=== PATIENT | female | born 1955 | race Caucasian/White ===

== ENCOUNTER 2019-01-18 14:59 | Outpatient (REF) | payer MEDICAID, SELFPAY ==
--- NOTE | 2019-01-18 14:00 | PAPFT_PTH ---
PATIENT: Elise Glasgow LOC: [facility] U#:[id number] AGE/SX: 63/F ROOM: RE01/18/[address]: NAOMY Leiva : 1955 BED: DIS: 01/18/2019 SPEC #: [id number] RECD: 01/18/19 17:01 STATUS: LUANNE ROWAN #: [id number] BELEM: 01/18/19 14:[address]: Guera Dunlap DEPT: [facility] Cytology RECD BY: Ina Hodges ENTERED: 01/18/19 17:01 SP TYPE: PAPFT ALLI DR: Rekha Cotto MD, DC Tissues: 1 - CX/ENDOCX FOR PAP SMEARS Procedures: PAP THIN PREP/UVM Screening HPV DNA PROBE Comments: [id number]
== END 2019-01-18 15:19 ==
LOC: LBN 14:59
PROVIDERS: PCP Family Medicine; Visit Provider Nurse Practitioner Family
DX: Z12.4 Encounter for screening for malignant neoplasm of cervix (principal); Z11.51 Encounter for screening for human papillomavirus (HPV)
CPT/HCPCS: 88142; 87624

== ENCOUNTER 2021-10-08 02:49 | Outpatient (CLI) | payer MEDICARE, MEDICAID, SELFPAY ==
[2021-10-08 12:28] LABS: Absolute Basophil Count 0.04 10^3/uL (0.0-0.2); Absolute Eosinophil Count 0.05 10^3/uL (0.0-0.7); Absolute Lymphocyte Count 1.05 10^3/uL (1.2-3.4); Absolute Neutrophil Count 2.11 10^3/uL (1.2-6.7); Basophils % 1.1; Eosinophils % 1.3; HCT 44.2 % (36.0-46.0); HGB 14.5 g/dL (11.2-15.7); MCH 29.5 pg (27.0-33.0); MCHC 32.8 % (32.0-36.0); Monocytes % 13.3; Neutrophils % 56.3; Nucleated RBC 0 %; Platelet Count 279 10^3/uL (130-400); RBC 4.91 10^6/uL (3.93-5.22); RDW 12.1 % (11.7-14.6); RDW-SD 39.8 fL; WBC 3.75 10^3/uL (4.4-10.8)
[2021-10-08 13:07] LABS: Anion Gap 9.3 mmol/L (3-11); BUN 16 mg/dL (7-18); CO2 26.7 mmol/L (21.0-32.0); CREATININE 0.8 mg/dL (0.55-1.02); Calcium 9.1 mg/dL (8.5-10.1); Chloride 106 mmol/L (98-107); Glucose 96 mg/dL (74-106); Potassium 4.1 mmol/L (3.5-5.1); Sodium 142 mmol/L (136-145); TSH 3.26 uIU/mL (0.36-3.74); Vitamin B12 410 pg/mL (193-986)
[2021-10-08 17:38] LABS: CRP, High Sensitivity 0.97 mg/L (See Note)
[2021-10-08 17:55] LABS: T3,Free 3.4 pg/mL (2.8-5.3)
[2021-10-11 02:54] LABS: Vitamin D 25 Total 22.8 ng/mL (30-100)
[2021-10-11 08:50] LABS: DHEA Sulfate 56 ug/dL (34-79)
[2021-10-11 10:30] LABS: Homocysteine 15.3 umol/L (5.0-13.9)
[2021-10-11 13:33] LABS: Fibrinogen Antigen, P 417 mg/dL (196 - 441)
[2021-10-11 15:23] LABS: Tissue Transglutaminase Ab IgA <1.2 U/mL; Tissue Transglutaminase Ab IgG <1.2 U/mL
[2021-10-12 12:04] LABS: Methylmalonic Acid 0.25 nmol/mL (<=0.40)
[2021-10-12 20:10] LABS: Gliadin (Deamidated) Ab, IgA <10.0 U; Gliadin (Deamidated) Ab, IgG <10.0 U
[2021-10-15 09:55] LABS: T3 (Triiodothyronine) Reverse 16 ng/dL (10-24)
== END 2021-10-08 02:50 | disposition home or self-care (01) ==
LOC: LOS 02:49
PROVIDERS: PCP Family Medicine; Visit Provider Naturopath
DX: R53.83 Other fatigue; E55.9 Vitamin D deficiency, unspecified; Z13.220 Encounter for screening for lipoid disorders; Z13.0 Encounter for screening for diseases of the blood and blood-forming organs and certain disorders involving the immune mechanism; Z13.29 Encounter for screening for other suspected endocrine disorder; Z00.00 Encounter for general adult medical examination without abnormal findings
CPT/HCPCS: 36415; 80048; 80061; 80186; 82306; 82627; 83090; 83516; 85385; 86141; 82607; 82626; 82728; 84436; 84443; 84481; 84482; 84630; 85025

== ENCOUNTER 2021-11-26 00:21 | Outpatient (CLI) | payer MEDICARE, MEDICAID, SELFPAY ==
--- NOTE | 2021-11-26 | DI.DEXA_ITS ---
Exam(s) XR DEXA BONE DENSITY W/WO CHRISTIN EXAM: XR DEXA BONE DENSITY W/WO CHRISTIN CLINICAL HISTORY: LOSS OF HEIGHT, SCREENING FOR OSTEOPOROSIS IN POSTMENOPAUSAL WOMAN,Z78.0 TECHNIQUE: moneymeets C densitometer COMPARISON: No exams were available for comparison FINDINGS: Lateral view of the thoracic and lumbar spine shows no evidence of compression fractures. Bone mineral density measurements of the lumbar spine correspond to a total T-score of -3.9, in the o steoporotic range peer Bone mineral density measurements of the left hip correspond to a total T-score of -2.6 . The femora l neck T-score is -3.3, in the osteoporotic range.. The left forearm bone mineral density measurements correspond to a T-score of the distal 3rd of -3.7, in the osteoporotic range. . IMPRESSION: Osteoporosis of the lumbar spine, left hip and left forearm.
== END 2021-11-26 00:41 ==
PROVIDERS: PCP Family Medicine; Visit Provider Naturopath
DX: Z78.0 Asymptomatic menopausal state (principal); M81.0 Age-related osteoporosis without current pathological fracture
CPT/HCPCS: 77080

== ENCOUNTER 2021-11-29 10:27 | Outpatient (REF) | payer MEDICARE, MEDICAID, SELFPAY ==
--- NOTE | 2021-11-29 10:00 | PAPFT_PTH ---
PATIENT: Elsie Glasgow LOC: [facility] U#:[id number] AGE/SX: 66/F ROOM: RE11/29/[address]: NAOMY Leiva : 1955 BED: DIS: 11/29/2021 SPEC #: [id number] RECD: 11/29/21 12:55 STATUS: LUANNE REQ #: [id number] BELEM: 11/29/21 10:[address]: Guera Dunlap DEPT: [facility] Cytology RECD BY: Ina Hodges ENTERED: 11/29/21 12:55 SP TYPE: PAPFT OTHR DR: Rekha Cotto MD, DC Tissues: 1 - CX/ENDOCX FOR PAP SMEARS Procedures: PAP THIN PREP/UVM Screening HPV DNA PROBE Comments: [id number]
== END 2021-11-29 10:28 | disposition home or self-care (01) ==
LOC: LBN 10:27
PROVIDERS: PCP Family Medicine; Visit Provider Nurse Practitioner Family
DX: Z12.4 Encounter for screening for malignant neoplasm of cervix (principal); Z11.51 Encounter for screening for human papillomavirus (HPV); Z01.419 Encounter for gynecological examination (general) (routine) without abnormal findings
CPT/HCPCS: 88142; 87624

== ENCOUNTER 2022-06-24 01:09 | Outpatient (CLI) | payer MEDICARE, MEDICAID, SELFPAY ==
--- OUTSIDE RECORDS SUMMARY | 2022-06-24 01:31 | XMS_ITS | Encounter Summary ---
:1955 Author Organization [facility] Address [address] [place] [address] Care Team Providers Name Role Phone Unavailable Primary Care Provider Unavailable Encounter Details Date Type Department Care Team Description 03/05/2012 Results Only [facility] Marilyn Ramsey, STANLEY Laboratory Services - [address] [address] Social History Tobacco Use Types Packs/Day Years Used Date Never Assessed Sex Assigned at Date Recorded Not on file documented as of this encounter Plan of Treatment Upcoming Encounters Date Type Specialty Care Team Description 07/11/2022 Telemedicine Endocrinology Iram Womack, DO 62 [facility] [address] [place] [phone] (Wo rk) documented as of this encounter Procedures Procedure Name Priority Date/Time Associated Diagnosis Comme nts PAP TEST- RESULT Routine 03/05/2012 0:00 EDT Resu lts for this ONLY procedure are i n the results section. documented in this encounter Results PAP TEST- RESULT ONLY (03/05/2012 0:00 EDT) Pathology Report: CYTOPATHOLOGY REPORT [facility] Reports generated via electronic interface contain stephanie ginal data; however they are lacking the format of the original re port. Caution should be taken when reading/interpreting unfo rmatted reports. Name: ? ELISE MONTAÑO ? Accession #: ? [id number] ? : ? 1955 (Age: 57) ??F ?Collect Da te: ? 03/05/2012 ? Location: ? [facility] ? Receive Date: ? 012 ? Provider: MARILYN RAMSEY MANAGER PRODUCTION Copy to: NELI KEBEDE MD ? Final Report SPECIMEN ADEQUACY ? Satisfactory for Evaluation - transformation zone component present GENERAL CATEGORIZATION ? Negative for Intraepithelial Lesion or Malignan cy ?? Last Menstural Period: 2005 Specimen/Source: ??Pap Test, Cervix/Endocervix, ThinPr ep Imaging System with manual evaluation Document reviewed and electronically signed by: ? Safia Khan, ENEIDA(ASCP) ? Report ??Date: 03/09/2012 15:54 HPV with Pap Test ? Date Ordered: ? 03/09/2012 ? Status: ?? Signed Out ?Date Complete: ? 03/13/2012 ? By: ??S ystem Interface ? Date Reported: ? 03/13/2012 ? Interpretation RESULT: Negative for HPV. No E6 or E7 mRNA is detected from HPV types 16,18,31,3 3,35, 39,45,51,52,56,58,59,66, and 68 by beauty culturist apprentice media william amplification. Comments Document reviewed and electronically signed by: ? System Interface ? Report date: 03/13/2012 By the signature above, the attending physician certif ies that he/she has personally conducted a gross and/or microscopic examin ation of the described specimens and rendered or confirmed the above diagnosi s. End of Report Specimen Performing Organization Address City/State/ZIP Code Phon e Number [facility] [address] [place] [address] SERVICES [facility] [address] [place] [address] documented in this encounter Visit Diagnoses Not on filedocumented in this encounter
--- OUTSIDE RECORDS SUMMARY | 2022-06-24 01:31 | XMS_ITS | Encounter Summary ---
:1955 Author Organization [facility] Address [address] [place] [address] Care Team Providers Name Role Phone Unavailable Primary Care Provider Unavailable Encounter Details Date Type Department Care Team Description 11/30/2021 Lab Requisition [facility] Guera Dunlap E ncounter for other Pathology & DIGITAL MEDIA PLANNER general examination Laboratory Medicine [address] [place], [place] 111 [facility] [phone] [place] [address] Social History Tobacco Use Types Packs/Day Years Used Date Never Assessed Sex Assigned at Date Recorded Not on file documented as of this encounter Plan of Treatment Upcoming Encounters Date Type Specialty Care Team Description 07/11/2022 Telemedicine Endocrinology Iram Womack, DO 62 [facility] [address] [place] [phone] (Wo rk) documented as of this encounter Procedures Procedure Name Priority Date/Time Associated Comments Diagnosis PAP TEST Today 11/29/2021 10:00 Encounter for other Resu lts for this EST general examination procedur e are in the results section. HUMAN PAPILLOMAVIRUS Today 11/29/2021 10:00 Encounter for ot her Results for this (HPV) DETECTION-HIGH EST general examination procedure are in RISK TYPES the results section. documented in this encounter Results HUMAN PAPILLOMAVIRUS (HPV) DETECTION-HIGH RISK TYPES (11/29/2021 10:00 EST) Human Papillomavirus NegativeComment: No Negative [facility] (HPV) Detection-High E6 or E7 mRNA is CENTER LABORATOR Y Types detected from HPV SERVICES types 16,18,31,33,35,39,45 ,51,52,56,58,59,66, and 68 by lawn caretaker mediated amplification. Specimen Pap Test - Cervix and/or Endocervix Performing Organization Address City/State/ZIP Code Phon e Number [facility] [address] [place] [address] SERVICES PAP TEST (11/29/2021 10:00 EST) Specimens A. Cervix and/or [facility] Endocervix , ThinPrep CENTER Imaging System with LABORATORY Manual Evaluation SERVICES Specimen Adequacy Satisfactory for Evaluation - assessment of transformation zone component not applicable ( e.g. atrophy, vaginal sample, hysterectomy) [facility] Scant squamous epithelial component [facility]ENT[facility] LABORATORY SERVICES General Negative for [facility] intraepithelial MALCOLM lesion or malignancy LABORATORY SERVICES Attestation . [facility] signed by TANIA Ray CT(ASCP) o n SERVICES 12/09/2021 at 11 18 Clinical History See below [facility] SERVICES HPV The result for the Human Pap illomavirus (HPV) Detection-High Risk Types is Negative. No E6 or E7 mRNA is detected from HPV types 16,18,31,33,35,39,45,51,52,56,58,59,66, and 68 by lawn caretaker mediated [facility] amplification.Testing was pe rformed on specimen [id number] and was resulted on 12/09/2021 1100 EST by CALI, LAB INSTRUMENT RESULTS IN [facility] SERVICES Performing Lab [facility] SERVICES Scanned Images [facility] SERVICES Specimen Pap Test - Cervix and/or Endocervix Performing Organization Address City/[facility]/ZIP Code Phon e Number [facility] [address] [place] [address] SERVICES documented in this encounter Visit Diagnoses Diagnosis Encounter for other general examination documented in this encounter
--- OUTSIDE RECORDS SUMMARY | 2022-06-24 01:31 | XMS_ITS | Encounter Summary ---
:1955 Author Organization [facility] Address [address] [place] [address] Care Team Providers Name Role Phone Unavailable Primary Care Provider Unavailable Encounter Details Date Type Department Care Team Description 02/11/2002 Results Only [facility] - Marilyn Almaraz NP conversion [address] [place] [address] Social History Tobacco Use Types Packs/Day Years Used Date Never Assessed Sex Assigned at Date Recorded Not on file documented as of this encounter Plan of Treatment Upcoming Encounters Date Type Specialty Care Team Description 07/11/2022 Telemedicine Endocrinology Iram Womack, DO 62 [facility] [address] [place] [phone] (Wo rk) documented as of this encounter Procedures Procedure Name Priority Date/Time Associated Diagnosis Comme [facility] CYTOPATHOLOGY Routine 02/11/2002 0:00 EST Results for this procedure are i n the results section . documented in this encounter Results CYTOPATHOLOGY (02/11/2002 0:00 EST) Pathology Report: CYTOPATHOLOGY REPORT [facility] Reports generated via electronic interface contain stephanie ginal data; however they are lacking the format of the original re port. Caution should be taken when reading/interpreting unfo rmatted reports. Name: ? ELISE MONTAÑO ? Accession #: ? [id number] : ? 1955 (Age: 46) ??F ?Collect Date: ? 01/19 Location: ? [facility] ? Receive Date : ? 02/12/2002 Provider: ?MARILYN HOPSON DIRECTOR PLANS Copy to: ? Specimen/Source: ?Conventional Pap Test, Cer vix/Endocervix Last Menstrual Period: ? 01/14/02 ? SPECIMEN ADEQUACY ? Satisfactory for Evaluation - transformation zone component present GENERAL CATEGORIZATION ? Negative for Intraepithelial Lesion or Malignan cy ? Document reviewed and electronically signed by: ? ENEIDA Lozano(ASCP) ? Report Date: ??02/14/2002 16:17 End of Report Specimen Performing Organization Address City/State/ZIP Code Phon e Number [facility] [address] [place] [address] SERVICES [facility] [address] [place] [address] documented in this encounter Visit Diagnoses Not on filedocumented in this encounter
--- OUTSIDE RECORDS SUMMARY | 2022-06-24 01:31 | XMS_ITS | Clinical Summary ---
:1955 Author Organization [facility] Address [address] [place] [address] Care Team Providers Name Role Phone Unavailable Primary Care Provider Unavailable Social History Tobacco Use Types Packs/Day Years Used Date Never Assessed Sex Assigned at Date Recorded Not on file Plan of Treatment Upcoming Encounters Date Type Specialty Care Team Description 07/11/2022 Telemedicine Endocrinology Iram Womack, DO [address] [place] [address] [place] [phone] (Wo rk) Health Maintenance Due Date Last Done Comments Hepatitis C Screen 1955 COVID-19 Vaccine (1) 1959 Fall Risk Screening 2019
--- OUTSIDE RECORDS SUMMARY | 2022-06-24 01:31 | XMS_ITS | Encounter Summary ---
:1955 Author Organization [facility] Address [address] [place] [address] Care Team Providers Name Role Phone Unavailable Primary Care Provider Unavailable Encounter Details Date Type Department Care Team Description 11/14/2007 Results Only [facility] - Marilyn Almaraz NP conversion [address] [place] [address] Social History Tobacco Use Types Packs/Day Years Used Date Never Assessed Sex Assigned at Date Recorded Not on file documented as of this encounter Plan of Treatment Upcoming Encounters Date Type Specialty Care Team Description 07/11/2022 Telemedicine Endocrinology Iram Womack, DO 62 [facility] [address] [place] [phone] (Wo rk) documented as of this encounter Procedures Procedure Name Priority Date/Time Associated Diagnosis Comme nts CYTOPATHOLOGY Routine 11/14/2007 0:00 EST Results for this procedure are i n the results section . documented in this encounter Results CYTOPATHOLOGY (11/14/2007 0:00 EST) Pathology Report: CYTOPATHOLOGY REPORT [facility] Reports generated via electronic interface contain stephanie ginal data; however they are lacking the format of the original re port. Caution should be taken when reading/interpreting unfo rmatted reports. Name: ? ELISE MONTAÑO ? Accession #: ? [id number] : ? 1955 (Age: 52) ??F ?Collect Date: ? 10/21 Location: ? [facility] ? Receive Date : ? 11/15/2007 Provider: ?MARILYN HOPSON LAW WRITER Copy to: ? Specimen/Source: ? ThinPrep Pap Test, Cervix/Endocervix, processed on coresystems ThinPrep Imaging System, with manual evaluation Last Menstrual Period: ? 3 years Other: ? HPVA - HPV testing requested if ASC-US on the current ThinPrep Pap test. ? SPECIMEN ADEQUACY ? Satisfactory for Evaluation - transformation zone component present GENERAL CATEGORIZATION ? Negative for Intraepithelial Lesion or Malignan cy ? Document reviewed and electronically signed by: ? ENEIDA Talbert(ASCP) ? Report Date: ??11/21/2007 09:08 End of Report Specimen Performing Organization Address City/State/ZIP Code Phon e Number [facility] [address] [place] [phone] SERVICES [facility] [address] [place] [address] documented in this encounter Visit Diagnoses Not on filedocumented in this encounter
--- OUTSIDE RECORDS SUMMARY | 2022-06-24 01:31 | XMS_ITS | Encounter Summary ---
:1955 Author Organization [facility] Address [address] [place] [address] Care Team Providers Name Role Phone Unavailable Primary Care Provider Unavailable Encounter Details Date Type Department Care Team Description 09/23/2005 Results Only [facility] - Guera Correa od, SPACE BUYER conversion [address] [facility] [address] [place] [phone] (Rory ibrahim) Social History Tobacco Use Types Packs/Day Years Used Date Never Assessed Sex Assigned at Date Recorded Not on file documented as of this encounter Plan of Treatment Upcoming Encounters Date Type Specialty Care Team Description 07/11/2022 Telemedicine Endocrinology Iram Womack, DO 62 [facility] [address] [place] [phone] (Wo rk) documented as of this encounter Procedures Procedure Name Priority Date/Time Associated Diagnosis Comme nts CYTOPATHOLOGY Routine 09/23/2005 0:00 EST Results for this procedure are i n the results section . documented in this encounter Results CYTOPATHOLOGY (09/23/2005 0:00 EST) Pathology Report: CYTOPATHOLOGY REPORT [facility] Reports generated via electronic interface contain stephanie ginal data; however they are lacking the format of the original re port. Caution should be taken when reading/interpreting unfo rmatted reports. Name: ? ELISE MONTAÑO ? Accession #: ? [id number] : ? 1955 (Age: 50) ??F ?Collect Date: ? 02/2005 Location: ? [facility] ? Receive Date : ? 09/26/2005 Provider: ?GUERA LIMA SPACE BUYER Copy to: ? Specimen/Source: ?Conventional Pap Test, Cer vix/Endocervix Last Menstrual Period: ? 1 + years ago ? SPECIMEN ADEQUACY ? Satisfactory for Evaluation - assessment of transformation zone component not appl icable ( e.g. atrophy, vaginal sample, hysterectomy) GENERAL CATEGORIZATION ? Negative for Intraepithelial Lesion or Malignan cy ? Document reviewed and electronically signed by: ? Winnie Oconnor, SCT(ASCP) ? Report Date: ??09/30/2005 09:36 End of Report Specimen Performing Organization Address City/State/ZIP Code Phon e Number [facility] [address] [place] [address] SERVICES [facility] [address] [place] [address] documented in this encounter Visit Diagnoses Not on filedocumented in this encounter
--- OUTSIDE RECORDS SUMMARY | 2022-06-24 01:31 | XMS_ITS | Encounter Summary ---
:1955 Author Organization [facility] Address [address] [place] [address] Care Team Providers Name Role Phone Unavailable Primary Care Provider Unavailable Encounter Details Date Type Department Care Team Description 11/17/2008 Before PRISM Converted [facility] - Kaykay Ramsey, Visit (Maple) Maple conversion INTELLIGENCE OPERATIONS SPECIALIST [address] [place] [address] Social History Tobacco Use Types Packs/Day Years Used Date Never Assessed Sex Assigned at Date Recorded Not on file documented as of this encounter Plan of Treatment Upcoming Encounters Date Type Specialty Care Team Description 07/11/2022 Telemedicine Endocrinology Iram Womack, DO 62 [facility] [address] [place] [phone] (Wo rk) documented as of this encounter Procedures Procedure Name Priority Date/Time Associated Diagnosis Comme [facility] CYTOPATHOLOGY Routine 11/17/2008 0:00 EST Results for this procedure are i n the results section . documented in this encounter Results CYTOPATHOLOGY (11/17/2008 0:00 EST) Pathology Report: CYTOPATHOLOGY REPORT ? BLACK ALL EN ? LAB Reports generated via [employer] interface contain original data; ? however they are lacking the format of the original report. ? Caution should be taken when reading/interpreting unformatted reports. ? Name: ? ELISE MONTAÑO ? Accession #: ? [id number] ? : ? 1955 (Age: 53) ??F ?Collect Date: ? 11/17/2008 ? Location: ? [facility] ? Receive Date: ? 11/18/2008 ? Provider: ?SAVANAH M RO WLETT INTELLIGENCE OPERATIONS SPECIALIST ? Copy to: ? Specimen/Source: ? Pap Test, Cervix/Endocervix, ThinPrep Imaging System ? with manual evaluation ? Last Menstrual Period: ? Age 49 ? Other: ? HPVA - HPV testing requested if ASC-US on the current ThinPrep Pap test. ? SPECIMEN ADEQUACY ? Satisfactory for Eval uation ? - assessment of transformati on zone component not applicable ( e.g. atrophy, ? vaginal sample, hysterectomy ) ? GENERAL CATEGORIZATION ? Negative for Intraepi thelial Lesion or Malignancy ? Document reviewed and electr onically signed by: ? Barbara Verville,CT(ASCP) ? Report Date: ??01/02/ 2009 15:02 ? End of Report ? Specimen Performing Organization Address City/State/ZIP Code Phon e Number [facility] [address] [place] [address] SERVICES [facility] [address] [place] [address] documented in this encounter Visit Diagnoses Not on filedocumented in this encounter
--- OUTSIDE RECORDS SUMMARY | 2022-06-24 01:31 | XMS_ITS | Encounter Summary ---
:1955 Author Organization [facility] Address [address] [place] [address] Care Team Providers Name Role Phone Unavailable Primary Care Provider Unavailable Encounter Details Date Type Department Care Team Description 01/10/2011 Results Only [facility] Marilyn Ramsey, STANLEY Laboratory Services - [address] [address] Social History Tobacco Use Types Packs/Day Years Used Date Never Assessed Sex Assigned at Date Recorded Not on file documented as of this encounter Plan of Treatment Upcoming Encounters Date Type Specialty Care Team Description 07/11/2022 Telemedicine Endocrinology Iram Womack, DO 62 [facility] [address] [place] [phone] (Wo rk) documented as of this encounter Procedures Procedure Name Priority Date/Time Associated Diagnosis Comme nts CYTOPATHOLOGY Routine 01/10/2011 0:00 EST Results for this procedure are i n the results section . documented in this encounter Results CYTOPATHOLOGY (01/10/2011 0:00 EST) Pathology Report: CYTOPATHOLOGY REPORT ? BLACK ALL EN ? LAB Reports generated via [employer] interface contain original data; ? however they are lacking the format of the original report. ? Caution should be taken when reading/interpreting unformatted reports. ? Name: ? ELISE MONTAÑO ? Accession #: ? [id number] ? : ? 1955 (Age: 55) ??F ?Collect Date: ? 01/10/2011 ? Location: ? [facility] ? R eceive Date: ? 01/11/2011 ? Provider: MARILYN M MARK ANTHONY WEB UI DEVELOPER ? Copy to: ? Final Report ? SPECIMEN ADEQUACY ? Satisfactory for Eval uation ? - transformation zone compon ent present ? GENERAL CATEGORIZATION ? Negative for Intraepi thelial Lesion or Malignancy ? Last Menstural Period: 2004 ? Specimen/Source: ??Pap Test, Cervix/Endocervix, ThinPrep Imaging System with ? manual evaluation ? Document reviewed and electr onically signed by: ? Safia Khan, CT(ASCP) ? Report ??Date: 02/23/ 2011 15:58 ? HPV with Pap Test ? Date Ordered: ? 0 01/12/2011 ? Status: ?? Signed Out ?Date Complete: ? 01/17/2011 ? By: ??System Interface ? Date Reported: ? 01/17/2011 ? Interpretation ? RESULT: Negative for HPV typ es 16, 18, 31, 33, 35, 39, 45, 51, 52, ? 56, 58, 59, and 68. ? Comments ? Document reviewed and electr onically signed by: ? System Interface ? Report date: 01/17/09 10 ? By the signature above, the attending physician certifies that he/she has ? personally conducted a gross and/or microscopic examination of the described ? specimens and rendered or co nfirmed the above diagnosis. ? End of Report ? Specimen Performing Organization Address City/State/ZIP Code Phon e Number [facility] [address] [place] [address] SERVICES [facility] [address] [place] [address] documented in this encounter Visit Diagnoses Not on filedocumented in this encounter
--- OUTSIDE RECORDS SUMMARY | 2022-06-24 01:31 | XMS_ITS | Encounter Summary ---
:1955 Author Organization [facility] Address [address] [place] [address] Care Team Providers Name Role Phone Unavailable Primary Care Provider Unavailable Encounter Details Date Type Department Care Team Description 03/11/2004 Results Only [facility] - Marilyn Almaraz NP conversion [address] [place] [address] Social History Tobacco Use Types Packs/Day Years Used Date Never Assessed Sex Assigned at Date Recorded Not on file documented as of this encounter Plan of Treatment Upcoming Encounters Date Type Specialty Care Team Description 07/11/2022 Telemedicine Endocrinology Iram Womack, DO 62 [facility] [address] [place] [phone] (Wo rk) documented as of this encounter Procedures Procedure Name Priority Date/Time Associated Diagnosis Comme [facility] CYTOPATHOLOGY Routine 03/11/2004 0:00 EDT Results for this procedure are i n the results section . documented in this encounter Results CYTOPATHOLOGY (03/11/2004 0:00 EDT) Pathology Report: CYTOPATHOLOGY REPORT [facility] Reports generated via electronic interface contain stephanie ginal data; however they are lacking the format of the original re port. Caution should be taken when reading/interpreting unfo rmatted reports. Name: ? ELISE MONTAÑO ? Accession #: ? [id number] : ? 1955 (Age: 49) ??F ?Collect Date: ? 02/19 Location: ? [facility] ? Receive Date : ? 03/15/2004 Provider: ?MARILYN HOPSON SENIOR SOFTWARE PROJECT MANAGER Copy to: ? Specimen/Source: ?Conventional Pap Test, Cer vix/Endocervix Last Menstrual Period: ? 03/01/04 & ? SPECIMEN ADEQUACY ? Satisfactory for Evaluation - transformation zone component present GENERAL CATEGORIZATION ? Negative for Intraepithelial Lesion or Malignan cy INTERPRETATION ? Reactive cellular charanjit nges associated with inflammation present (includes repair). ? Document reviewed and electronically signed by: ? Khloe Banuelos MD ? Report Date: ??03/17/2004 13:37 End of Report Specimen Performing Organization Address City/State/ZIP Code Phon e Number [facility] [address] [place] [address] SERVICES [facility] [address] [place] [address] documented in this encounter Visit Diagnoses Not on filedocumented in this encounter
--- OUTSIDE RECORDS SUMMARY | 2022-06-24 01:31 | XMS_ITS | Encounter Summary ---
:1955 Author Organization [facility] Address [address] [place] [address] Care Team Providers Name Role Phone Unavailable Primary Care Provider Unavailable Encounter Details Date Type Department Care Team Description 10/25/2006 Results Only [facility] - Marilyn Almaraz NP conversion [address] [place] [address] Social History Tobacco Use Types Packs/Day Years Used Date Never Assessed Sex Assigned at Date Recorded Not on file documented as of this encounter Plan of Treatment Upcoming Encounters Date Type Specialty Care Team Description 07/11/2022 Telemedicine Endocrinology Iram Womack, DO 61 Located Within [facility] [address] [place] [phone] (Wo rk) documented as of this encounter Procedures Procedure Name Priority Date/Time Associated Diagnosis Comme nts CYTOPATHOLOGY Routine 10/25/2006 0:00 EST Results for this procedure are i n the results section . documented in this encounter Results CYTOPATHOLOGY (10/25/2006 0:00 EST) Pathology Report: CYTOPATHOLOGY REPORT [facility] Reports generated via electronic interface contain stephanie ginal data; however they are lacking the format of the original re port. Caution should be taken when reading/interpreting unfo rmatted reports. Name: ? ELISE MONTAÑO ? Accession #: ? [id number] : ? 1955 (Age: 51) ??F ?Collect Date: ? 04/2006 Location: ? [facility] ? Receive Date : ? 10/27/2006 Provider: ?MARILYN HOPSON [employer] Copy to: ? Specimen/Source: ?Conventional Pap Test, Cer vix/Endocervix Last Menstrual Period: ? 2 + yrs ago ? SPECIMEN ADEQUACY ? Satisfactory for Evaluation - transformation zone component present GENERAL CATEGORIZATION ? Negative for Intraepithelial Lesion or Malignan cy ? Document reviewed and electronically signed by: ? ENEIDA Lozano(ASCP) ? Report Date: ??11/03/2006 15:47 End of Report Specimen Performing Organization Address City/State/ZIP Code Phon e Number [facility] [address] [place] [address] SERVICES [facility] [address] [place] [address] documented in this encounter Visit Diagnoses Not on filedocumented in this encounter
--- OUTSIDE RECORDS SUMMARY | 2022-06-24 01:31 | XMS_ITS | Encounter Summary ---
:1955 Author Organization [facility] Address [address] [place] [address] Care Team Providers Name Role Phone Unavailable Primary Care Provider Unavailable Encounter Details Date Type Department Care Team Description 10/08/2021 Lab Requisition [facility] Outr Resulting Lab, Pathology & Laboratory Provider [facility] [address] [place] [address] Social History Tobacco Use Types Packs/Day Years Used Date Never Assessed Sex Assigned at Date Recorded Not on file documented as of this encounter Plan of Treatment Upcoming Encounters Date Type Specialty Care Team Description 07/11/2022 Telemedicine Endocrinology Iram Womack, DO 61 [facility] [address] [place] [phone] (Wo rk) documented as of this encounter Procedures Procedure Name Priority Date/Time Associated Comments Diagnosis DHEA SULFATE Routine 10/08/2021 8:05 Results for this EST procedure are i n the results section. HIGH SENSITIVITY Routine 10/08/2021 8:05 Results for this C-REACTIVE PROTEIN EST procedure are in (CARDIOVASCULAR the results DISEASE) section. T3 FREE Routine 10/08/2021 8:05 Results for this EST procedure are i n the results section. HOMOCYSTEINE Routine 10/08/2021 8:05 Results for this EST procedure are i n the results section. documented in this encounter Results T3 FREE (10/08/2021 8:05 EST) Pathologist Sig nature T3, Free 3.4 2.8 - 5.3 pg/mL [facility] Specimen Blood - Venous blood (substance) Performing Organization Address City/State/ZIP Code Phon e Number [facility] [address] [place] [address] SERVICES (ABNORMAL) HOMOCYSTEINE (10/08/2021 8:05 EST) Homocysteine 15.3 (H)Comment: 5.0 - 13.9 [facility] Results may be umol/L LABORATORY SERVICES falsely elevated if sample is not collected on ice or is not removed from cells within 1 hour of collection. Specimen Blood - Venous blood (substance) Narrative [facility] - 10/11/2021 10:26 EST Reference range may not apply to non-fas ting samples. ??It is not recommended that EDTA plasma and serum from the same pratima ent be used interchangeably. ??Serum concentrations have been observed to be up to 10% higher than EDTA plasma. Reference range may not apply to serum results. Performing Organization Address City/[facility]/ZIP Code Phon e Number [facility] [address] [place] [address] SERVICES DHEA SULFATE (10/08/2021 8:05 EST) Pathologist Sig nature DHEA Sulfate 56 34 - 79 ug/dL [facility] RY SERVICES Specimen Blood - Venous blood (substance) Performing Organization Address [facility] Code Phon e Number [facility] [address] [place] [address] SERVICES HIGH SENSITIVITY C-REACTIVE PROTEIN (CARDIOVASCULAR DISEASE) (10/08/2021 8:05 EST) High Sensitivity 0.97 See Note [facility] CRP Comment: mg/L [facility] LAB[facility]ORY Reference Range: SERVICES ??Source: [employer] Clinical Practice Recommendations, 2003 ??Low Risk: ? <1.0 mg/L ??Average Risk: ?? 1.0 - 3.0 mg/L ??High Risk: ?>3.0 mg/L ??Indeterminate*: >10.0 mg/L ??*May be an indication of another source of inflamma tion or infection Specimen Blood - Venous blood (substance) Performing Organization Address City/[facility]/ZIP Code Phon e Number [facility] [address] [place] [address] SERVICES documented in this encounter Visit Diagnoses Not on filedocumented in this encounter
[2022-06-24 12:20] LABS: Abs Immature Grans 0.01 10^3/uL (0.0-0.06); Absolute Basophil Count 0.03 10^3/uL (0.0-0.2); Absolute Eosinophil Count 0.04 10^3/uL (0.0-0.7); Absolute Lymphocyte Count 1.51 10^3/uL (1.2-3.4); Absolute Monocyte Count 0.52 10^3/uL (0.1-0.8); Absolute Neutrophil Count 2.62 10^3/uL (1.2-6.7); Basophils % 0.6; Eosinophils % 0.8; HCT 44.7 % (36.0-46.0); HGB 14.8 g/dL (11.2-15.7); Immature Grans % 0.2; Lymphocytes % 31.9; MCH 29.9 pg (27.0-33.0); MCHC 33.1 % (32.0-36.0); MCV 90 fL (80-95); MPV 10.6 fL (8.0-11.0); Neutrophils % 55.5; Platelet Count 276 10^3/uL (130-400); RBC 4.95 10^6/uL (3.93-5.22); RDW 11.9 % (11.7-14.6); RDW-SD 39.2 fL; WBC 4.73 10^3/uL (4.4-10.8)
[2022-06-24 12:53] LABS: Anion Gap 8.1 mmol/L (3-11); BUN 18 mg/dL (7-18); CO2 27.9 mmol/L (21.0-32.0); CREATININE 0.8 mg/dL (0.55-1.02); Calculated LDL 188 mg/dL (<100); Chloride 104 mmol/L (98-107); Cholesterol 280 mg/dL (<200); Glucose 97 mg/dL (74-106); HDL Cholesterol 62 mg/dL (40-60); Potassium 4.3 mmol/L (3.5-5.1); Sodium 140 mmol/L (136-145); TSH (W/Ref FT4) 3.35 uIU/mL (0.36-3.74); Triglyceride 151 mg/dL (<150)
== END 2022-06-24 01:10 | disposition home or self-care (01) ==
LOC: LOS 01:10
PROVIDERS: PCP Family Medicine; Visit Provider Family Medicine
DX: E03.9 Hypothyroidism, unspecified (principal); R53.83 Other fatigue; Z13.6 Encounter for screening for cardiovascular disorders
CPT/HCPCS: 36415; 80048; 80061; 84443; 85025

== ENCOUNTER 2022-08-19 01:22 | Outpatient (CLI) | payer MEDICARE, MEDICAID, SELFPAY ==
[2022-08-19 13:39] LABS: ALT 22 U/L (14-59); AST 19 U/L (15-37); Albumin 4.1 g/dL (3.4-5.0); Alkaline Phosphatase 118 U/L (46-116); Anion Gap 10.3 mmol/L (3-11); BUN 22 mg/dL (7-18); Bilirubin, Total 0.4 mg/dL (0.2-1.0); CO2 26.7 mmol/L (21.0-32.0); CREATININE 1.1 mg/dL (0.55-1.02); Calcium 9.4 mg/dL (8.5-10.1); Chloride 102 mmol/L (98-107); Estimated GFR 54.73 (mL/min/1.73m2); Glucose 94 mg/dL (74-106); PHOSPHORUS 3.2 mg/dL (2.6-4.7); Potassium 3.9 mmol/L (3.5-5.1); Sodium 139 mmol/L (136-145); TSH 3.12 uIU/mL (0.36-3.74); Total Protein 7.8 g/dL (6.4-8.2)
[2022-08-22 06:46] LABS: Vitamin D 25 Total 42.6 ng/mL (30-100)
[2022-08-22 10:12] LABS: Parathyroid Hormone,Intact 62 pg/mL (19-88)
== END 2022-08-19 01:23 | disposition home or self-care (01) ==
LOC: LOS 01:22
PROVIDERS: PCP Family Medicine; Visit Provider Internal Medicine Endocrinology, Diabetes & Metabolism
DX: M81.8 Other osteoporosis without current pathological fracture (principal)
CPT/HCPCS: 36415; 80053; 82306; 83970; 84100; 84443

== ENCOUNTER 2024-08-23 01:04 | Outpatient (CLI) | payer MEDICARE, MEDICAID, SELFPAY ==
--- NOTE | 2024-08-23 07:30 | DI.US_ITS ---
APPROVED REPORT EXAM: Comprehensive 2D, Doppler, and color-flow Echocardiogram Patient Location: Out-Patient [employer] Belt Engineer: Matt Davey RDCS (AE) Indications: Evaluate cardiac murmur Conclusion Normal left ventricular wall thickness and chamber size. Ejection fraction is 65%. Wall motion is n ormal Normal right ventricular size and function Both atria are normal in size Mildly sclerotic trileaflet aortic valve without stenosis or regurgitation Wall motion Left Ventricle The left ventricle is normal size. The left ventricular systolic function is normal. The left ventric ular ejection fraction is within the normal range. There is normal left ventricular wall thickness. T here is normal LV segmental wall motion. There is no ventricular septal defect visualized. LVEF is 65 %. Right Ventricle The right ventricle is normal size. The right ventricular systolic function is normal. Atria The left atrium size is normal. The right atrium size is normal. The interatrial septum is intact wit h no evidence for an atrial septal defect. Aortic Valve The aortic valve is mildly sclerotic. Aortic valve is trileaflet. There is no aortic valvular stenosi s. No aortic regurgitation is present. Mitral Valve The mitral valve is normal in structure. No evidence of mitral valve stenosis. Trace mitral regurgita tion. Tricuspid Valve The tricuspid valve is normal in structure. There is no tricuspid valve stenosis. Trace tricuspid reg urgitation. Pulmonic Valve The pulmonary valve is normal in structure. There is no pulmonic valvular stenosis. Trace to mild pul gucci regurgitation. Great Vessels The aortic root is normal in size. The ascending aorta is normal in size. Aortic arch is not well vis ualized. IVC is normal in size and collapses >50% with inspiration. Pericardium There is no pericardial effusion. 2D Dimensions IVSD d PLAX 0.68 cm F: 0.6-1.0 Ao Root d 2.36 cm F: 2.7 - 3.3 LVPW d PLAX 0.68 cm F: 0.6 - 1.0 Ao Asc Diam d 2.93 cm F: 2.3 - 3.1 LVID d PLAX 4.40 cm F: 3.8 - 5.2 LVDs 2.83 cm F: 2.2 - 3.5 LV EF Teichholz 65.4 % FS 35.67 % LV EDV (Teich) 87.6 mL LV ESV (Teich) 30.3 mL Stroke Vol Index (Teich) 38.98 M-Mode TAPSE 1.69 cm (M/F) >1.7 Auto EF LV EDV A4C 68.1 mL LV EDV A2C 52.6 mL LV EDV BP 62.1 mL LV ESV A4C 25.3 mL LV ESV A2C 18.8 mL LV ESV BP 21.6 mL LVEF(%) A4C 62.9 % LVEF(%) A2C 64.3 % LVEF(%) BP 65.3 % LV SV A4C 42.8 ml LV SV A2C 33.9 ml LV SV BP 40.5 ml LV CO A4C 3.0 L/min LV CO A2C 2.4 L/min LV CO BP 2.7 L/min HR A4C 69.50 BPM HR A2C 70.87 BPM LV EDV Index (BP) LA Volume LA Length A4C 3.3 cm LA Length A2C 3.7 cm LA Area A4C s 6.77 cm2 LA Area A2C s 8.42 cm2 LA Vol A4C A-L 11.87 mL LA Vol A2C A-L 16.33 mL LA Vol Biplane A-L 14.8 mL LA Vol/BSA A4C A-L LA Vol/BSA A2C A-L LA Vol/BSA BP A-L 10.0 mL/m2 LA Vol A4C MOD 11.8 mL LA Vol A2C MOD 14.9 mL LA Vol BP MOD 13.4 mL RA Volume RA Area A4C 6.3 cm2 RA ESV A4C (A-L) 9.6mL RA Vol/BSA A4C A-L RA Length A4C 3.5 cm RA ESV A4C (MOD) 9.3mL LV Diastology MV E' medial 0.071 (>0.07 m/s) MV E Vmax 0.75 (0.4-1.3 m/s) MV E/E' MED 10.63 (<14) MV A Vmax 0.85 (0.4-1.3 m/s) MV E' lateral 0.089 (>0.1 m/s) E/A Ratio 0.9 MV E/E' LAT 8.44 (<14) MV E' Average 0.080 m/s MV E/E'(average) 9.41 Aortic Valve AoV Vmax 1.40 m/s LVOT Vmax 0.96 m/s AoV Peak Grad 7.9 mmHg LVOT Peak Grad 3.7 mmHg AoV Area (Vmax) 1.65 cm2 LVOT VTI 0.205 m AoV VTI 0.323 m LVOT Mean Grad 1.7 mmHg AoV Mean Javy. 0.97 m/s LVOT SV 49.56 mL AoV Mean Grad 4.2 mmHg LVOT Diam s 1.75 cm AoV Area (VTI) 1.53 cm2 AV Regurg Peak Gr. 7.87 mmHg Velocity Ratio 0.69 Mitral Valve MV DT 142 (160-240 msec) MV Vmax TIPS 0.85 m/s MV Mean Grad 1.2 (<2mmHg) MV VTI 0.244 m Pulmonary Valve PV Vmax 1.04 (0.5-1.5 m/s) RVOT Vmax 0.56 m/s PV Peak Grad 4.3 mmHg RVOT Peak Gr. 1.3 mmHg PV Mean Javy 0.69 m/s RVOT VTI 0.130 m PV Mean Grad 2.1 mmHg RVOT Mean Gr. 0.8 mmHg Tricuspid Valve RA Pressure 3.00 mmHg TR Vmax 2.67 m/s TR Peak Grad 28.4 mmHg RVSP (TR) 31.5 mmHg
== END 2024-08-23 01:24 ==
LOC: DI 01:05
PROVIDERS: PCP Family Medicine; Visit Provider Nurse Practitioner Family
DX: R01.1 Cardiac murmur, unspecified (principal)
CPT/HCPCS: 93306